=== PATIENT | male | born 1990 | race Asian ===

== ENCOUNTER 2018-09-15 17:23 | Emergency (ER) | payer SELFPAY ==
[~2018-09-15] VITALS: Ht 180.3 cm; Wt 72.7 kg
[2018-09-15 17:28] VITALS: BP 115/76
[2018-09-15] MEDS ORDERED: TAMIFLU 75MG75 MG PO (20:16)
[2018-09-15 20:40] VITALS: PULSE 86; TEMP 100.8
== END 2018-09-15 20:44 | disposition home or self-care (01) ==
LOC: COL.ER 17:23
DX: J11.89 Influenza due to unidentified influenza virus with other manifestations (principal); Z87.891 Personal history of nicotine dependence; Z90.89 Acquired absence of other organs
CPT/HCPCS: J1200; J2765; J7030